=== PATIENT | female | born 1985 | race Two or more races ===

== ENCOUNTER → 2016-08-03 | Outpatient (CLI) | payer OTHER ==
[2016-08-03 10:41] LABS: Basophils # (auto) 0 uL; Basophils % (auto) 0.1 % (0.0-2.0); DEFINITIVE VIEW TRANSMISSION; Eosinophils # (auto) 0.1 uL; Eosinophils % (auto) 0.5 % (0.0-7.0); Hematocrit 35.6 % (36.0-46.0); Hemoglobin 11.8 g/dL (12.2-16.2); Lymphocytes # (auto) 2.2 uL; Mean Corpuscular Hemoglobin 25.2 pg (28.0-32.0); Mean Corpuscular Hgb Conc. 33.1 g/dL (32.0-36.0); Mean Corpuscular Volume 76.1 fL (80.0-100.0); Mean Platelet Volume 8.7 fL (7.4-10.4); Monocytes # (auto) 0.8 uL; Monocytes % (auto) 7.4 % (0.0-12.0); Neutrophils # (auto) 7.8 uL; Platelet Count (auto) 380 10^3/uL (140-450); Red Cell Distribution Width 15.2 % (11.6-16.0); White Blood Cell 10.8 10^3/uL (4.4-10.8)
== END | disposition home or self-care (01) ==
LOC: LAB 09:23
PROVIDERS: ATTEND Specialist
DX: Z34.80 Encounter for supervision of other normal pregnancy, unspecified trimester (principal); N76.0 Acute vaginitis
CPT/HCPCS: 36415; 85025; 87081

== ENCOUNTER → 2016-08-09 | Outpatient (CLI) | payer OTHER | END | disposition home or self-care (01) | LOC: LAB 08:58 | PROVIDERS: ATTEND Specialist | DX: Z34.80 Encounter for supervision of other normal pregnancy, unspecified trimester (principal); Z20.2 Contact with and (suspected) exposure to infections with a predominantly sexual mode of transmission; Z31.430 Encounter of female for testing for genetic disease carrier status for procreative management ==

== ENCOUNTER 2016-08-10 17:40 | Observation (INO) | payer SELFPAY | END 2016-08-10 19:13 | disposition home or self-care (01) | DRG 782 | LOC: LDRP 17:40 | PROVIDERS: ADMIT Obstetrics & Gynecology; ATTEND Obstetrics & Gynecology | DX: O48.0 Post-term pregnancy (principal); Z3A.40 40 weeks gestation of pregnancy | CPT/HCPCS: 59025; 76818; 81002; G0378 ==

== ENCOUNTER 2016-08-12 11:00 | Observation (INO) | payer OTHER | END 2016-08-12 12:50 | disposition home or self-care (01) | DRG 781 | LOC: LDRP 11:00 | PROVIDERS: ADMIT Specialist; ATTEND Specialist | DX: O26.893 Other specified pregnancy related conditions, third trimester (principal); O48.0 Post-term pregnancy; Z3A.40 40 weeks gestation of pregnancy | CPT/HCPCS: 59025; 76818; 81002; G0378 ==

== ENCOUNTER 2016-08-14 12:00 | Observation (INO) | payer SELFPAY | END 2016-08-14 13:45 | disposition home or self-care (01) | DRG 782 | LOC: LDRP 12:00 | PROVIDERS: ADMIT Obstetrics & Gynecology; ATTEND Obstetrics & Gynecology | DX: O48.0 Post-term pregnancy (principal); Z3A.40 40 weeks gestation of pregnancy | CPT/HCPCS: 59025; 76818; 81002; G0378 ==

== ENCOUNTER 2016-08-16 20:35 | Inpatient (IN) | payer SELFPAY ==
[~2016-08-16] VITALS: Ht 167.6 cm; Wt 101.2 kg
[2016-08-16] MEDS ORDERED: LACT. RINGERS/OXYTOCIN 20UNITS 1,000 ML IV SCH (20:49)
[2016-08-16] MEDS ORDERED: WITCH HAZEL-GLYCERIN PAD TOP PRN (21:00)
[2016-08-16] MEDS ORDERED: DERMOPLAST 60ML BOTTLE TOP PRN (21:00)
[2016-08-16] MEDS ORDERED: NALBUPHINE HCL 10 MG/1ml INJECTION IV PRN (21:00)
[2016-08-16] MEDS ORDERED: LIDOCAINE 1% HCL (LOCAL ANESTH.) INJ 20ML MDV IJ ONE (21:00)
[2016-08-16] MEDS ORDERED: PHISODERM TOP SOLN 240ML BTL TOP PRN (21:00)
[2016-08-16] MEDS ORDERED: METHYLERGONOVINE MALEATE 0.2 MG/ML AMP IM PRN (21:00)
[2016-08-16 21:36] LABS: Basophils # (auto) 0 uL; Basophils % (auto) 0.4 % (0.0-2.0); DEFINITIVE VIEW TRANSMISSION; Eosinophils # (auto) 0.1 uL; Eosinophils % (auto) 0.5 % (0.0-7.0); Hematocrit 33.4 % (36.0-46.0); Hemoglobin 10.8 g/dL (12.2-16.2); Lymphocytes # (auto) 2.4 uL; Lymphocytes % (auto) 23.1 % (10.0-50.0); Mean Corpuscular Hemoglobin 24.6 pg (28.0-32.0); Mean Corpuscular Hgb Conc. 32.5 g/dL (32.0-36.0); Mean Corpuscular Volume 75.8 fL (80.0-100.0); Mean Platelet Volume 8.4 fL (7.4-10.4); Monocytes # (auto) 0.9 uL; Monocytes % (auto) 8.9 % (0.0-12.0); Neutrophils # (auto) 6.9 uL; Neutrophils % (auto) 67.1 % (37.0-80.0); Platelet Count (auto) 353 10^3/uL (140-450); Red Cell Distribution Width 15.6 % (11.6-16.0); White Blood Cell 10.4 10^3/uL (4.4-10.8)
[2016-08-16 21:44] LABS: Partial Thromboplastin Time 25.2 sec (22.64-33.71); Prothrombin Time 9.5 sec (9.37-12.3)
[2016-08-16 21:49] LABS: INR 0.88 (0.9-1.15)
[2016-08-16 21:51] LABS: Urine Bilirubin Negative (Negative); Urine Blood Negative /uL (Negative); Urine Color Yellow (Yellow); Urine Glucose Normal (Normal); Urine Ketone Negative (Negative); Urine Mucus FEW (None Seen); Urine Nitrite Negative (Negative); Urine RBC <1 /hpf (0 - 4); Urine Squamous Epithelial Cell FEW /hpf (<5); Urine Urobilinogen Normal (Negative)
[2016-08-16 21:54] LABS: Albumin 2.7 g/dL (3.4-5.0); BUN/Creatinine Ratio 15.9; Calcium 8.5 mg/dL (8.5-10.1); Potassium 3.7 mmol/L (3.5-5.1)
[2016-08-16 21:56] LABS: Bilirubin, Total 0.2 mg/dL (0.2-1.0); Total Protein 6.6 g/dL (6.4-8.2)
[2016-08-16] MEDS: LACTATED RINGER'S 1,000 ML IV SCH (22:43)
[2016-08-17] MEDS ORDERED: LIDOCAINE 2%HCL (LOCAL ANESTH.) INJ 20ML MDV IJ ONE (03:45)
[2016-08-17] MEDS: LACTATED RINGER'S 1,000 ML IV SCH ×3 (06:49→21:42)
[2016-08-17] MEDS ORDERED: FAMOTIDINE 20 MG TAB PO SCH (10:00)
[2016-08-17] MEDS: FAMOTIDINE 20 MG TAB PO SCH ×3 (10:00→21:49)
[2016-08-17] MEDS ORDERED: SODIUM CITR/CITRIC ACID ORAL SOLN 30 ML PO SCH (21:15)
[2016-08-18] MEDS ORDERED: TERBUTALINE SULFATE 1 MG/ML 1ML VIAL SC ONE (00:05)
[2016-08-18] MEDS ORDERED: fentaNYL CITRATE 100 MCG/2 ML VL IV ONE (00:45)
[2016-08-18] MEDS ORDERED: fentaNYL W ROPIVACAINE 150 ML EPI SCH (00:45)
[2016-08-18] MEDS ORDERED: NALOXONE HCL 0.4 MG/ML VIAL IV ONE (00:45)
[2016-08-18] MEDS ORDERED: ePHEDrine SULFATE 50 MG/ML AMP IV ONE (00:45)
[2016-08-18] MEDS ORDERED: LIDOCAINE HCL 2 %PF INJ 10ML AMP IJ ONE ×2 (00:45→00:54)
[2016-08-18] MEDS ORDERED: NALOXONE HCL 0.4 MG/ML VIAL ONE (00:53)
[2016-08-18] MEDS ORDERED: ePHEDrine SULFATE 50 MG/ML AMP ONE (00:53)
[2016-08-18] MEDS ORDERED: fentaNYL CITRATE 100 MCG/2 ML VL ONE (00:53)
[2016-08-18] MEDS ORDERED: fentaNYL W ROPIVACAINE 0 ML EPI ONE (00:54)
[2016-08-18] MEDS ORDERED: IBUPROFEN 600 MG TAB PO ONE (02:58)
[2016-08-18] MEDS: ACETAMINOPHEN 325 MG TAB PO PRN ×3 (04:14→15:48)
[2016-08-18] MEDS ORDERED: LACT. RINGERS/OXYTOCIN 20UNITS 1,000 ML IV SCH (04:15)
[2016-08-18] MEDS: LACTATED RINGER'S 1,000 ML IV SCH ×2 (04:49→12:49)
[2016-08-18 07:10] VITALS: BP 108/55
[2016-08-18] MEDS: IBUPROFEN 600 MG TAB PO PRN ×3 (07:30→14:53)
[2016-08-18 08:00] VITALS: BP 108/55
[2016-08-18] MEDS: DOCUSATE SOD 100 MG CAP PO SCH (08:00)
[2016-08-18] MEDS: FAMOTIDINE 20 MG TAB PO SCH ×2 (10:00→22:00)
[2016-08-18 12:07] VITALS: BP 107/59
[2016-08-18 12:09] VITALS: BP 107/59
[2016-08-18 16:30] VITALS: BP 108/59
[2016-08-18 18:45] VITALS: BP 118/57
[2016-08-18] MEDS: HYDROcodone-ACET 10/325MG TAB PO PRN (22:40)
[2016-08-19] VITALS: BP 114/61
[2016-08-19] MEDS: IBUPROFEN 600 MG TAB PO PRN ×3 (00:15→12:56)
[2016-08-19] MEDS: DOCUSATE SOD 100 MG CAP PO SCH ×2 (01:00→11:26)
[2016-08-19 04:00] VITALS: BP 112/38
[2016-08-19 08:08] VITALS: BP 114/48
[2016-08-19] MEDS: FAMOTIDINE 20 MG TAB PO SCH (10:00)
[2016-08-19] MEDS ORDERED: TETANUS-DIPTH-ACEL PERTUSSIS 0.5ML SYRG IM ONE (10:15)
[2016-08-19] MEDS: HYDROcodone-ACET 10/325MG TAB PO PRN (11:26)
[2016-08-19 12:00] VITALS: BP 118/44
[2016-08-19] MEDS ORDERED: RANI300T3 PO (12:04)
[2016-08-19] MEDS ORDERED: LORA-622 PO (12:04)
== END 2016-08-19 13:30 | disposition home or self-care (01) | DRG 775 ==
LOC: LDRP 20:35
PROVIDERS: ADMIT Specialist; ATTEND Specialist
PROC: 10E0XZZ Delivery of Products of Conception, External Approach (ICD-10-PCS; principal; 2016-08-18)
PROC: 0KQM0ZZ Repair Perineum Muscle, Open Approach (ICD-10-PCS; 2016-08-18)
DX: O48.0 Post-term pregnancy (principal); O69.81X0 Labor and delivery complicated by cord around neck, without compression, not applicable or unspecified; O77.0 Labor and delivery complicated by meconium in amniotic fluid; O70.1 Second degree perineal laceration during delivery; Z3A.41 41 weeks gestation of pregnancy; Z37.0 Single live birth; Z23 Encounter for immunization; Z85.3 Personal history of malignant neoplasm of breast; Z85.038 Personal history of other malignant neoplasm of large intestine
CPT/HCPCS: 36415; 59025; 59409; 72170; 80053; 81001; 85025; 85610; 85730; 86850; 86900; 86901; 90472; 90715; 96361; 96366; J2590; J3010

== ENCOUNTER 2016-08-24 13:41 | Emergency (ER) | payer OTHER ==
[~2016-08-24] VITALS: Ht 167.6 cm; Wt 98.4 kg
[~2016-08-24 13:41] MED LIST: LORA-622 PO; RANI300T3 PO
[2016-08-24 15:52] VITALS: BP 118/66
[2016-08-24] MEDS ORDERED: KETOROLAC TROMETH 60MG/2ML VIAL IM ONE (16:45)
== END 2016-08-24 17:05 | disposition home or self-care (01) ==
LOC: ER 13:41
DX: O90.89 Other complications of the puerperium, not elsewhere classified (principal); S76.012A Strain of muscle, fascia and tendon of left hip, initial encounter; R10.30 Lower abdominal pain, unspecified; X58.XXXA Exposure to other specified factors, initial encounter; Y93.89 Activity, other specified; Y99.8 Other external cause status; Y92.89 Other specified places as the place of occurrence of the external cause
CPT/HCPCS: 96372; 99283; J1885